=== PATIENT | male | born 2000 | race Caucasian/White ===

== ENCOUNTER 2024-09-10 22:59 | Emergency (ER) | payer OTHER, SELFPAY ==
[2024-09-10] MEDS ORDERED: BUPIVACAINE 0.5% PF 10 ML VIAL ONE (23:16)
[2024-09-10] MEDS ORDERED: LIDOCAINE 1% MPF 5 ML VIAL ONE (23:32)
[2024-09-10] MEDS ORDERED: CEPHALEXIN 250 MG CAP ONE (23:37)
--- NOTE | 2024-09-11 01:02 | ER ---
Nurse's Notes [facility] Name: Tal Garibay Age: 23 yrs Sex: Male : 2000 Arrival Date: 09/10/2024 Time: 22:59 Bed 4 Private MD: Diagnosis: Laceration without foreign body of unspecified finger with damage to nail-right index Presentation: 09/10 23:06 Chief complaint: Patient states: pt reports cutting his finger tip with a saw on bm8 accident while preparing wood for a smoker. Coronavirus screen: Vaccine status: Patient reports receiving the 2nd dose of the covid vaccine. At this time, the client does not indicate any symptoms associated with coronavirus-19. Ebola Screen: Patient negative for fever greater than or equal to 101.5 degrees Fahrenheit, and additional compatible Ebola Virus Disease symptoms Patient denies exposure to infectious person. Patient denies travel to an Ebola-affected area in the 21 days before illness onset. No symptoms or risks identified at this time. Initial Sepsis Screen: Does the patient meet any 2 criteria? No. Patient's initial sepsis screen is negative. Does the patient have a suspected source of infection? No. Patient's initial sepsis screen is negative. Risk Assessment: Do you want to hurt yourself or someone else? Patient reports no desire to harm self or others. Onset of symptoms was September 10, 2024 at 23:00. 23:06 Method Of Arrival: Ambulatory bm8 23:06 Acuity: RACHELLE 3 bm8 Triage Assessment: 23:08 General: Appears in no apparent distress. comfortable, Behavior is calm, cooperative, bm8 appropriate for age. Pain: Complains of pain in right index fingernail Pain currently is 5 out of 10 on a pain scale. EENT: No deficits noted. No signs and/or symptoms were reported regarding the EENT system. Neuro: No deficits noted. Level of Consciousness is awake, alert, obeys commands, Oriented to person, place, time, situation, Appropriate for age. Cardiovascular: No deficits noted. Respiratory: No deficits noted. GI: No deficits noted. : No deficits noted. Derm: Wound noted dorsal aspect of distal phalanx of right index finger and right index fingernail Wound is see chief complaint. Musculoskeletal: Circulation, motion, and sensation intact. Capillary refill < 3 seconds, in bilateral fingers. Reports pain in right hand Pain is 5 out of 10 on a pain scale. Injury Description: Avulsion sustained to right hand is partial was sustained 1-2 hours ago. Historical: - Allergies: 23:08 No Known Allergies; bm8 - Home Meds: 23:08 None [Active]; bm8 - PMHx: 23:08 None; bm8 - PSHx: 23:08 None; bm8 - Immunization history:: Adult Immunizations up to date. - Infectious Disease History:: Denies. - Social history:: Smoking status: Patient denies any tobacco usage or history of. Vital Signs: 23:06 BP 139 / 76; Pulse 59; Resp 17; Temp 98.7; Pulse Ox 100% ; Weight 124.74 kg; Height 5 bm8 ft. 10 in. ; Pain 5/10; 23:06 Body Mass Index 39.46 (124.74 kg, 177.8 cm) bm8 23:06 Pain Scale: Adult bm8 ED Course: 23:03 Patient arrived in ED. br2 23:05 Bill Leigh, RN is Primary Nurse. bm8 23:08 Triage completed. bm8 23:11 Arm band placed on right wrist. bm8 23:18 Eron Hendrix MD is Attending Physician. [facility] 23:55 Hand Right 3 View XRAY In Process Unspecified. EDMS Administered Medications: 23:39 Drug: Cephalexin PO 500 mg PO once Route: PO; bm8 08 00:57 Follow up: Response: No adverse reaction bm8 00:57 Drug: Ikiuhmsx-Qbabwnfudo-Tlizgcpqr Topical Ointment 1 application Topical once Route: bm8 Topical; Site: affected area; 00:58 Drug: Bupivacaine Infiltration (0.5 %) 5 ml 10 ml Infiltration once Volume: 10 ml; bm8 Route: Infiltration; 00:58 Drug: Lidocaine Infiltration (1 %) 5 ml 5 ml Infiltration once; to bedside Volume: 5 bm8 ml; Route: Infiltration; 01:25 Drug: [place] PO 10 mg-325 mg 1 tabs PO once Route: PO; bm8 01:25 Drug: Ondansetron Oral Disintegrating Tablet Oral Disintegrating Tablet 4 mg PO once bm8 Route: PO; Outcome: 01:01 Discharge ordered by . [facility] 01:26 Patient left the ED. bm8 Signatures: Dispatcher [employer] EDMS Eron Hendrix MD MD polly Leigh, Bill, RN RN bm8 Nannette Alvares RN RN br2 Corrections: (The following items were deleted from the chart) 09/10 23:09 23:08 PSHx: None; bm8 bm8
--- NOTE | 2024-09-11 01:02 | EDPHYS ---
Physician Documentation [facility] Name: Tal Garibay Age: 23 yrs Sex: Male : 2000 Arrival Date: 09/10/2024 Time: 22:59 Bed 4 Private MD: ED Physician Eron Hendrix HPI: 09/11 00:55 This 23 yrs old Male presents to ER via Ambulatory with complaints of Finger polly Injury. 00:55 Trauma demographics: County: The injury occurred in [place] Location of Injury: The polly injury occurred at home. Mechanism of injury: saw to right index. Associated injuries: The patient sustained contusion, decreased range of motion, deformity, laceration, obvious fracture, painful injury. Onset: The symptoms/episode began/occurred just prior to arrival. Historical: - Allergies: 09/10 23:08 No Known Allergies; bm8 - Home Meds: 23:08 None [Active]; bm8 - PMHx: 23:08 None; bm8 - PSHx: 23:08 None; bm8 - Immunization history:: Adult Immunizations up to date. - Infectious Disease History:: Denies. - Social history:: Smoking status: Patient denies any tobacco usage or history of. ROS: 09/11 00:57 Constitutional: Negative for fever, chills, and weight loss, Eyes: Negative for injury, polly pain, redness, and discharge, ENT: Negative for injury, pain, and discharge, Neck: Negative for injury, pain, and swelling, Cardiovascular: Negative for chest pain, palpitations, and edema, Respiratory: Negative for shortness of breath, cough, wheezing, and pleuritic chest pain, Abdomen/GI: Negative for abdominal pain, nausea, vomiting, diarrhea, and constipation, Back: Negative for injury and pain, : Negative for injury, bleeding, discharge, and swelling, Skin: Negative for injury, rash, and discoloration, Neuro: Negative for headache, weakness, numbness, tingling, and seizure, Psych: Negative for depression, anxiety, suicide ideation, homicidal ideation, and hallucinations, Allergy/Immunology: Negative for hives, rash, and allergies, Endocrine: Negative for neck swelling, polydipsia, polyuria, polyphagia, and marked weight changes, Hematologic/Lymphatic: Negative for swollen nodes, abnormal bleeding, and unusual bruising, MS/extremity: Positive for injury or acute deformity, decreased range of motion, pain, swelling, of the dorsal aspect of distal phalanx of right index finger, palmar aspect of distal phalanx of right index finger and right index fingernail, Exam: 00:57 Constitutional: This is a well developed, well nourished patient who is awake, alert, polly and in no acute distress. Head/Face: Normocephalic, atraumatic. Eyes: Pupils equal round and reactive to light, extra-ocular motions intact. Lids and lashes normal. Conjunctiva and sclera are non-icteric and not injected. Cornea within normal limits. Periorbital areas with no swelling, redness, or edema. ENT: Nares patent. No nasal discharge, no septal abnormalities noted. Tympanic membranes are normal and external auditory canals are clear. Oropharynx with no redness, swelling, or masses, exudates, or evidence of obstruction, uvula midline. Mucous membranes moist. Neck: Trachea midline, no thyromegaly or masses palpated, and no cervical lymphadenopathy. Supple, full range of motion without nuchal rigidity, or vertebral point tenderness. No Meningismus. Chest/axilla: Normal chest wall appearance and motion. Nontender with no deformity. No lesions are appreciated. Cardiovascular: Regular rate and rhythm with a normal S1 and S2. No gallops, murmurs, or rubs. Normal PMI, no JVD. No pulse deficits. Respiratory: Lungs have equal breath sounds bilaterally, clear to auscultation and percussion. No rales, rhonchi or wheezes noted. No increased work of breathing, no retractions or nasal flaring. Abdomen/GI: Soft, non-tender, with normal bowel sounds. No distension or tympany. No guarding or rebound. No evidence of tenderness throughout. Back: No spinal tenderness. No costovertebral tenderness. Full range of motion. Male : Normal genitalia with no discharge or lesions. Skin: Warm, dry with normal turgor. Normal color with no rashes, no lesions, and no evidence of cellulitis. Neuro: Awake and alert, GCS 15, oriented to person, place, time, and situation. Cranial nerves II-XII grossly intact. Motor strength 5/5 in all extremities. Sensory grossly intact. Cerebellar exam normal. Normal gait. Psych: Awake, alert, with orientation to person, place and time. Behavior, mood, and affect are within normal limits. 00:57 Musculoskeletal/extremity: ROM: intact in all extremities, full active range of motion, Circulation is intact in all extremities. Sensation intact. Compartment Syndrome exam of affected extremity: is normal. 00:57 Skin: injury, laceration(s), the wound is approximately 1.5 cm(s), with a depth of .25 cm(s), of the dorsal aspect of distal phalanx of right index finger and right index fingernail, Vital Signs: 09/10 23:06 BP 139 / 76; Pulse 59; Resp 17; Temp 98.7; Pulse Ox 100% ; Weight 124.74 kg; Height 5 bm8 ft. 10 in. ; Pain 5/10; 23:06 Body Mass Index 39.46 (124.74 kg, 177.8 cm) bm8 23:06 Pain Scale: Adult bm8 Laceration: 09/11 00:57 Wound Repair of 1.5cm ( 0.6in ) subcutaneous laceration to palmar aspect of distal polly phalanx of right index finger and dorsal aspect of distal phalanx of right index finger. Irregularly shaped.. Skin/tissue flap noted.. Distal neuro/vascular/tendon intact. Anesthesia: Digital block administered with 3 mls of 0.5% marcaine. Wound prep: Moderate cleansing by me, Copious irrigation. Skin closed with 3 5-0 Prolene using interrupted sutures and sterile technique. Dressed with Neosporin, non-adherent dressing. Patient tolerated well. MDM: 09/10 23:18 Medical Screening Exam initiated [facility] 09/11 01:06 Differential diagnosis: open fracture, contusion, tendonitis. Data reviewed: vital [facility] signs, nurses notes, radiologic studies, plain films. Consideration of Admission/Observation Escalation of care including admission/observation considered. I considered the following discharge prescriptions or medication management in the emergency department Medications were administered in the Emergency Department. See MAR. Test considered but Not performed: Labs: no cbc , no cmp . Historians other than the Patient: Family Member: mom well informed. Care significantly affected by the following chronic conditions: none. 09/10 23:20 Order name: Hand Right 3 View XRAY [facility] 09/10 23:20 Order name: Dressing - Wound; Complete Time: 23:36 [facility] 09/10 23:20 Order name: Gloves, Sterile; Complete Time: 23:36 [facility] 09/10 23:20 Order name: Prolene, Sutures; Complete Time: 23:36 [facility] 09/10 23:20 Order name: Setup Suture Tray; Complete Time: 23:36 [facility] 09/11 01:06 Order name: Wound dressing; Complete Time: 01:25 polly Administered Medications: 09/10 23:39 Drug: Cephalexin PO 500 mg PO once Route: PO; bm8 09/11 00:57 Follow up: Response: No adverse reaction bm8 00:57 Drug: Bgexnluu-Gyzelacjba-Oeoebpmii Topical Ointment 1 application Topical once Route: bm8 Topical; Site: affected area; 00:58 Drug: Bupivacaine Infiltration (0.5 %) 5 ml 10 ml Infiltration once Volume: 10 ml; bm8 Route: Infiltration; 00:58 Drug: Lidocaine Infiltration (1 %) 5 ml 5 ml Infiltration once; to bedside Volume: 5 bm8 ml; Route: Infiltration; 01:25 Drug: [place] PO 10 mg-325 mg 1 tabs PO once Route: PO; bm8 01:25 Drug: Ondansetron Oral Disintegrating Tablet Oral Disintegrating Tablet 4 mg PO once bm8 Route: PO; Disposition Summary: 09/11/24 01:01 Discharge Ordered Notes: Location: Home [facility] Problem: new polly Symptoms: have improved polly Condition: Stable polly Diagnosis - Laceration without foreign body of unspecified finger with damage to nail - right polly index Followup: polly - With: Private Physician - When: 2 - 3 days - Reason: Recheck today's complaints, Continuance of care, Re-evaluation by your physician Discharge Instructions: - Discharge Summary Sheet polly - Finger Fracture, Adult polly - Nail Avulsion polly - Nail Bed Injury polly - Finger Fracture, Adult, [id number] polly - Nail Bed Injury, [id number] [facility] Forms: - Medication Reconciliation Form [facility] - Antibiotic Education polly - Prescription Opioid Use [facility] - Patient Portal Instructions [facility] - Leadership Thank You Letter [facility] Prescriptions: - mupirocin 2 % Topical ointment - apply 1 application TOPICAL route 3 times per day; 15 gram; Refills: 0, Product polly Selection Permitted - Cephalexin 500 mg Oral Capsule - take 1 capsule ORAL route every 6 hours for 10 days; 40 capsule; Refills: 0, polly Product Selection Permitted - Tylenol-Codeine #3 300mg-30mg Oral tablet - take 2 tablets ORAL route every 6 hours As needed; 16 tablet; Refills: 0, polly Product Selection Permitted Signatures: Dispatcher [employer] Eron Wiggins MD MD cha McDonald, Brad RN RN bm8 Corrections: (The following items were deleted from the chart) 09/10 23:09 23:08 PSHx: None; bm8 bm8
[2024-09-11] MEDS ORDERED: HYDROCODONE/APAP 10/325 TAB ONE (01:21)
[2024-09-11] MEDS ORDERED: ONDANSETRON 4 MG (ODT) TAB ONE (01:21)
[2024-09-11 01:47] VITALS: BP 139/76; TEMP 98.7; O2SAT 100
--- NOTE | 2024-09-11 06:10 | RAD REPORT ---
INDICATION: Pain;Swelling COMPARISON: No existing relevant imaging studies are available FINDINGS: Three views of the right hand were obtained. BONES / JOINTS: Acute displaced fracture of the distal aspect of the tuft of the second digit. No dis location. SOFT TISSUES: Soft tissue laceration of the distal second digit. No radiodense foreign body. ADDITIONAL FINDINGS: None. IMPRESSION: Acute displaced fracture of the distal aspect of the tuft of the second digit with overlying soft tis duy laceration. Electronically signed by: Wallace Alvares DO 09/11/2024 01:13 AM CDT RP NR Due to temporary technical issues with the PACS/[employer] reporting system, reports are being omero d by the in-house radiologist without review as a courtesy to ensure prompt reporting the interpreting radiologist is fully responsible for the content of the report. Transcribed Date/Time: 09/11/2024 6:10 AM
== END 2024-09-11 01:26 | disposition home or self-care (01) ==
LOC: ER 22:59
PROC: 0JQJ3ZZ Repair Right Hand Subcutaneous Tissue and Fascia, Percutaneous Approach (ICD-10-PCS; principal; 2024-09-10)
DX: S61.310A Laceration without foreign body of right index finger with damage to nail, initial encounter (principal); W27.0XXA Contact with workbench tool, initial encounter; Y92.019 Unspecified place in single-family (private) house as the place of occurrence of the external cause
CPT/HCPCS: 12001; 99282; J2003; Q0162